=== PATIENT | male | born 1940 | race Caucasian/White ===

== ENCOUNTER → 2017-01-29 | Outpatient (CLI) | payer OTHER, MEDICARE ==
[~2017-01-29] MED LIST: ACETAMINOPHEN-1 EAC1 PO; ALIGN4 MG PO; AMBIEN 5 MG TABL5 M1 PO; ASPIR 8181 M1 PO; ASPIRIN325 PO; BYSTOLIC 5 MG5 M1 PO; CLARITIN-D 24 H1 TA1 PO; COUMADIN 5 MG TA5 M1; CRESTOR20 MG PO; FLOMAX0.4 MG; HYCET 7.5 MG-3473 ML PO; HYDROCODON-ACE1 EAC5; MULTIVITAMINS PO; NICOTINE TRANSD21 M1 TD; NITROQUICK0.4 MG PO; PREDNISONE 10 M10 MG PO; PREDNISONE 20 M20 MG PO; PROSCAR 5MG TABL5 M1 PO; PROTONIX40 M1 PO; SENNA PO; SIMVASTATIN40 MG PO; TYLENOL ALLERG1 EA11 PO; UROXATRAL PO; WAL-PHED SINUS1 EACH PO; ZANTAC 150MG T150 M1 PO; [UNRECOGNIZED DRUG - OTHER] PO
== END ==
LOC: RAD 09:28
DX: K59.00 Constipation, unspecified (principal); R14.0 Abdominal distension (gaseous); M47.819 Spondylosis without myelopathy or radiculopathy, site unspecified

== ENCOUNTER → 2018-12-29 | Outpatient (CLI) | payer OTHER, MEDICARE | LOC: RAD 10:59 | DX: I51.7 Cardiomegaly (principal); J98.11 Atelectasis; J98.4 Other disorders of lung; R06.02 Shortness of breath ==

== ENCOUNTER → 2020-07-13 | Outpatient (CLI) | payer OTHER, MEDICARE | LOC: RAD 12:26 | PROVIDERS: ATTEND Internal Medicine | DX: J43.9 Emphysema, unspecified (principal); J98.4 Other disorders of lung ==